=== PATIENT | male | born 1970 | race Caucasian/White ===

== ENCOUNTER 2024-08-06 18:51 | Emergency (ER) | payer OTHER ==
[~2024-08-06] VITALS: Ht 185.4 cm; Wt 100.0 kg
[2024-08-06 18:59] VITALS: BP 149/88; RESP 16; TEMP 97.8; O2SAT 96
--- NOTE | 2024-08-06 19:06 | ECG ---
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
[2024-08-06] MEDS ORDERED: CYCL-837 PO (22:39)
[2024-08-06] MEDS ORDERED: ACE3T PO (22:39)
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
[2024-08-06 22:48] VITALS: PULSE 70
[2024-08-06] MEDS: KETOROLAC TROMETH 60MG/2ML VIAL IM ONE (22:52)
== END 2024-08-06 22:50 | disposition home or self-care (01) ==
LOC: EDBD 18:51 → ER 18:51
DX: S20.211A Contusion of right front wall of thorax, initial encounter (principal); K21.9 Gastro-esophageal reflux disease without esophagitis; E78.5 Hyperlipidemia, unspecified; V89.2XXA Person injured in unspecified motor-vehicle accident, traffic, initial encounter; Y93.89 Activity, other specified; Y92.410 Unspecified street and highway as the place of occurrence of the external cause; Y99.8 Other external cause status
CPT/HCPCS: 71045; 93005; 96372; 99283; J1885